=== PATIENT | male | born 1965 | race Caucasian/White ===

== ENCOUNTER 2020-04-26 15:44 | Inpatient (IN) | payer MEDICAID ==
[~2020-04-26] VITALS: Ht 170.2 cm; Wt 65.3 kg
--- NOTE | 2020-04-26 16:00 | NUR ---
TIMO RA 860 "skateboarding couple days ago-fell and hurt RHand/swollen". on room air, breathing evenly and unlabored. connected to the monitor and pulse ox. kept comfortable, will continue to monitor accordingly.
[2020-04-26] MEDS ORDERED: TDAP [DIPH/PERTUSSIS/TET] 0.5 ML VIAL IM ONE ×2 (16:18→16:30)
--- NOTE | 2020-04-26 17:28 | NUR ---
MS ALISE NOTES PATIENT ARRIVED ON THE FLOOR AT 1650. PATIENT IN BED, RESTING, ALERT AND ORIENTED X 3-4. BREATHING EVEN AND UNLABORED ON ROOM AIR. SHOWS NO SIGNS OF ACUTE RESPIRATORY DISTRESS, NO ACUTE PAIN. IV ON LAC 18G ITS CLEAN DRY AND INTACT. SHOWS NO SIGNS OF INFILTRATION, NO REDNESS. SKIN ASSESSMENT COMPLETED, BELONGINGS CHECKLIST COMPLETED, ORIENTED TO UNIT AND STAFF. SAFETY PRECAUTIONS IN PLACE. BED IN LOWEST POSITION, LOCKED, AND CALL LIGHT KEPT WITHIN REACH. WILL CONTINUE TO MONITOR. Addendum: 04/26/20 at 1949 by YAKOV ETIENNE RN WRONG TIME
[2020-04-26] MEDS ORDERED: VANCOMYCIN 1 GM in IV D5W 250 ML IV ONE (17:30)
[2020-04-26] MEDS ORDERED: PIPERACILLIN /TAZOBACTAM 3.375 G in IV D5W 50 ML IV ONE (17:30)
--- NOTE | 2020-04-26 17:33 | NUR ---
MOVE SHEET SUBMITTED TO ADMITTING AND CALLED FOR MS BED.
--- NOTE | 2020-04-26 17:38 | NUR ---
CALLED SHARAD COLLINS PAGESg
[2020-04-26] MEDS ORDERED: KETOROLAC TROMETHAMINE 15 MG/ML VIAL ONE (17:45)
--- NOTE | 2020-04-26 17:46 | NUR ---
GOT BED 323-1
[2020-04-26] MEDS ORDERED: KETOROLAC TROMETHAMINE INJ 30 MG/ML VIAL IV ONE (18:00)
[2020-04-26 18:10] LABS: BASOPHILS # (AUTO) 0.1 /CMM (0.0-0.2); BASOPHILS % (AUTO) 0.7 % (0.0-2.0); EOSINOPHILS % (AUTO) 0.1 % (0.0-6.0); HEMATOCRIT 44 % (39-51); HEMOGLOBIN 14.8 g/dL (13.5-17.5); LYMPHOCYTES # (AUTO) 0.9 /CMM (0.8-4.8); LYMPHOCYTES % (AUTO) 4.7 % (20.0-44.0); MEAN CORPUSCULAR HGB CONC 34 g/dl (31.0-36.0); MEAN CORPUSCULAR VOLUME 93 fL (80-96); MONOCYTES # (AUTO) 1.3 /CMM (0.1-1.30); MONOCYTES % (AUTO) 6.7 % (2.0-12.0); NEUTROPHILS # (AUTO) 17.1 /CMM (1.8-8.9); NEUTROPHILS % (AUTO) 87.8 % (43.0-81.0); PLATELET COUNT (AUTO) 319 /CMM (150-450); RED BLOOD CELL COUNT(AUTO) 4.72 MIL/uL (4.5-6.0); WHITE BLOOD COUNT (AUTO) 19.5 K/uL (4.3-11.0)
[2020-04-26 18:21] LABS: CALCIUM, SERUM 9.1 mg/dL (8.5-10.1); POTASSIUM 3.1 mmol/L (3.5-5.1)
[2020-04-26] MEDS ORDERED: POTASSIUM CHLORIDE 20 MEQ TAB.PRT.SR PO ONE (18:30)
[2020-04-26] MEDS ORDERED: ZOLPIDEM TARTRATE 5 MG TABLET PO PRN (18:30)
[2020-04-26] MEDS ORDERED: Z GUARD REMEDY 2 OZ OINT TP PRN (18:30)
[2020-04-26] MEDS ORDERED: MAGNESIUM HYDROXIDE 30 ML UDC PO PRN (18:30)
[2020-04-26] MEDS ORDERED: MAG HYDROX/AL HYDROX/SIMETH 30 ML UDC PO PRN (18:30)
[2020-04-26] MEDS ORDERED: ONDANSETRON HCL/PF 4 MG/2 ML VIAL IVP PRN (18:30)
[2020-04-26] MEDS ORDERED: MORPHINE SULFATE INJ 2 MG/ML DISP.SYRIN IV PRN (18:30)
[2020-04-26] MEDS ORDERED: ACETAMINOPHEN 325 MG TABLET PO PRN (18:30)
--- NOTE | 2020-04-26 18:31 | NUR ---
report given to Jatinder CARRERO for guera.
--- NOTE | 2020-04-26 18:40 | NUR ---
MS CARRERO NOTES PATIENT ARRIVED ON THE FLOOR AT 1650. PATIENT IN BED, RESTING, ALERT AND ORIENTED X 3-4. BREATHING EVEN AND UNLABORED ON ROOM AIR. SHOWS NO SIGNS OF ACUTE RESPIRATORY DISTRESS, NO ACUTE PAIN. IV ON LAC 18G ITS CLEAN DRY AND INTACT. SHOWS NO SIGNS OF INFILTRATION, NO REDNESS. SKIN ASSESSMENT COMPLETED, BELONGINGS CHECKLIST COMPLETED, ORIENTED TO UNIT AND STAFF. SAFETY PRECAUTIONS IN PLACE. BED IN LOWEST POSITION, LOCKED, AND CALL LIGHT KEPT WITHIN REACH. WILL CONTINUE TO MONITOR. Addendum: 04/26/20 at 2016 by YAKOV ETIENNE RN PT ARRIVED ON FLOOR AT 1850
[2020-04-26] MEDS ORDERED: FEE PK DOSING 1 MIN EA MC ONE (18:49)
[2020-04-26 19:30] VITALS: BP 162/97
[2020-04-26 20:00] VITALS: BP 162/97
--- NOTE | 2020-04-26 20:00 | NUR ---
MS RN NOTES PATIENT SAID TO DRINK SEVERAL BEERS, WINE, OR HARD ALCOHOL ON A DAILY BASIS. ADMITTED THAT HE IS AN ALCOHOLIC. HE ALSO LIVES IN A MOTOR HOME AND STRUGGLES TO FIND A PLACE TO STAY PARKED. SUGGESTED TO MEET WITH STORE KEEPER TO GET OPTIONS TO HELP WITH SITUATION.
[2020-04-26] MEDS: PIPERACILLIN /TAZOBACTAM 3.375 G in IV D5W 50 ML IV SCH (23:45)
[2020-04-27] MEDS: PIPERACILLIN /TAZOBACTAM 3.375 G in IV D5W 50 ML IV SCH ×4 (05:28→23:53)
[2020-04-27] MEDS: VANCOMYCIN 1 GM in IV D5W 250 ML IV SCH ×2 (05:53→17:32)
--- NOTE | 2020-04-27 06:32 | NUR ---
MS RN NOTES PATIENT IN BED, ASLEEP, ALERT AND ORIENTED X 4. BREATHING EVEN AND UNLABORED ON ROOM AIR. SHOWS NO SIGNS OF ACUTE RESPIRATORY DISTRESS, NO ACUTE PAIN. IV ON LAC 18G SL, ITS CLEAN DRY AND INTACT. SHOWS NO SIGNS OF INFILTRATION, NO REDNESS. ALL DUE MEDICATIONS GIVEN. SAFETY PRECAUTIONS IN PLACE. BED IN LOWEST POSITION, LOCKED, AND CALL LIGHT KEPT WITHIN REACH. WILL ENDORSE TO ONCOMING NURSE
[2020-04-27 06:42] LABS: BASOPHILS # (AUTO) 0.1 /CMM (0.0-0.2); BASOPHILS % (AUTO) 0.3 % (0.0-2.0); EOSINOPHILS % (AUTO) 0.2 % (0.0-6.0); HEMATOCRIT 43 % (39-51); LYMPHOCYTES # (AUTO) 1.2 /CMM (0.8-4.8); LYMPHOCYTES % (AUTO) 6.1 % (20.0-44.0); MEAN CORPUSCULAR HGB CONC 33 g/dl (31.0-36.0); MEAN CORPUSCULAR VOLUME 93 fL (80-96); MONOCYTES # (AUTO) 1.1 /CMM (0.1-1.30); MONOCYTES % (AUTO) 5.9 % (2.0-12.0); NEUTROPHILS % (AUTO) 87.5 % (43.0-81.0); PLATELET COUNT (AUTO) 309 /CMM (150-450); RED BLOOD CELL COUNT(AUTO) 4.56 MIL/uL (4.5-6.0); WHITE BLOOD COUNT (AUTO) 19.4 K/uL (4.3-11.0)
--- NOTE | 2020-04-27 07:10 | NUR ---
RN OPENING NOTES RECEIVED PATIENT IN BED AWAKE RESTING. A/OX4. NOT IN ANY FORM OF DISTRESS, NO SOB. DENIED PAIN OR DISCOMFORT AT THIS TIME. IV ACCESS INTACT AND PATENT. KEPT PATIENT SAFE AND COMFORTABLE. BED IN LOW/LOCKED [place]. SIDERAILS UPX2, CALL LIGHT IN REACH. WILL CONT TO MONITOR ACCORDINGLY.
[2020-04-27 07:11] LABS: CALCIUM, SERUM 9.1 mg/dL (8.5-10.1); CREATININE 0.9 mg/dL (0.6-1.3); MAGNESIUM 1.8 mg/dL (1.8-2.4); PHOSPHORUS 2.6 mg/dL (2.5-4.9); POTASSIUM 3.7 mmol/L (3.5-5.1)
[2020-04-27 07:13] LABS: THYROID STIMULATING HORMONE 0.384 uIU/mL (0.358-3.74)
[2020-04-27 08:00] VITALS: BP 173/96
[2020-04-27] MEDS: HYDROCODONE/APAP 5/325MG 1 EACH TABLET PO PRN (08:58)
[2020-04-27 10:00] VITALS: BP 149/97
--- NOTE | 2020-04-27 11:00 | NUR ---
RN NOTES WOUND CARE RENDERED ON RIGHT HAND
--- NOTE | 2020-04-27 12:07 | NUR ---
Social Service consult requested by MD for alcohol abuse. Per MD notes, pt is a 55-year-old male, presenting to the ER because of acute right wrist and right hand pain after he fell couple days ago. LINE TENDER FLAKEBOARD conducted chart review and met with the pt bedside. LINE TENDER FLAKEBOARD introduced self, explained the role of the SW and purpose of the visit. Pt is alert and oriented to person, place, time and situation. Pt reports, he resides in a motor home which is currently [place] [employer] [place] [email or web address] Pt has no monthly income. Pt reports, he recently applied for the stimulus package. Pt has a history of alcohol abuse and drinks daily. Pt has had a DUI in 1994 and attended a treatment program right after. Pt reports, he [place] market on [place] carrying a pack of beer and bottle of wine and fell. Pt did report he had used methamphetamines earlier that day. Pt states, he stopped smoking cigarettes since 1984. Pt denies any psychiatric illness or hospitalizations. Pt reports, " I am pretty strong that way". Pt wishes to be discharged back to his motor home. Pt will require a TAP card upon discharge. LINE TENDER FLAKEBOARD provided pt with active listening, supportive counseling, validation of feelings and positive coping skills. LINE TENDER FLAKEBOARD encouraged pt to attend an alcohol treatment program and provided him a list of addiction resources. LINE TENDER FLAKEBOARD also provided pt with list of Homeless Resources Related to COVID-19. LINE TENDER FLAKEBOARD updated MS3 RIKKI Moffett and CARLO Gupta with pt's discharge plan. Homeless Patient waiver Form needs to be signed by the pt at discharge. RN notified. Workers Compensation Claims Supervisor to remain available for support as needed.
--- NOTE | 2020-04-27 14:00 | NUR ---
rn notes offered pain meds. patient stated that he is ok for now.
[2020-04-27 16:00] VITALS: BP 139/83
--- NOTE | 2020-04-27 18:51 | NUR ---
RN CLOSING NOTES PATIENT IN BED RESTING. ALL NEEDS ATTENDED AND PROVIDED. ALL DUE MEDS GIVEN ORDERED. ASSISTED WITH ADLS. KEPT PATIENT SAFE AND COMFORTABLE. BED IN LOW/LOCKED POSITION. SIDERAILS UPX2, CALL LIGHT IN REACH. WILL ENDORSE ACCORDINGLY TO NIGHT RN.
[2020-04-27 20:19] VITALS: BP 136/62
--- NOTE | 2020-04-27 20:24 | NUR ---
RN NOTES PATIENT IN BED, ALERT AND ORIENTED X4, ROOM AIR, DENIES PAIN AT THIS TIME, RIGHT HAND WOUND SECURED WITH DRESSING, ATE DINNER. WILL CONTINUE TO MONITOR
[2020-04-28] MEDS: PIPERACILLIN /TAZOBACTAM 3.375 G in IV D5W 50 ML IV SCH ×2 (05:18→12:12)
--- NOTE | 2020-04-28 06:22 | NUR ---
RN NOTES Alert and oriented x4, right hand cellulitis, continue vancomycin and zosyn, vanco trough 04/28/20 at 0500, pending wound care consult.
--- NOTE | 2020-04-28 07:44 | NUR ---
RN OPENING NOTE Patient is resting in bed, A/O x4, showing no signs of acute distress or SOB, stable on RA. IV line in the LAC #18g is clean and intact s/l. Bed is in lowest position, side rails x3 in upright position, call light is within reach. Fall, safety and aspiration precautions enforced. Will continue with plan of care.
[2020-04-28 07:54] LABS: CALCIUM, SERUM 9.1 mg/dL (8.5-10.1); MAGNESIUM 2.3 mg/dL (1.8-2.4); PHOSPHORUS 3.1 mg/dL (2.5-4.9); POTASSIUM 4.2 mmol/L (3.5-5.1)
[2020-04-28] MEDS: HYDROCODONE/APAP 5/325MG 1 EACH TABLET PO PRN (07:57)
[2020-04-28 08:00] VITALS: BP 140/81
[2020-04-28 08:07] VITALS: BP 140/81
--- NOTE | 2020-04-28 08:08 | NUR ---
RN NOTE Patient presents with 6/10 pain on right hand and temperature of 99.0F. [place] given and cooling measures implemented, will continue to monitor.
--- NOTE | 2020-04-28 09:05 | NUR ---
RN NOTE 0600 Vanco held by PM RN due to pending trough levels. Trough came back 6, ok per pharmacy to give vanco at this time.
[2020-04-28] MEDS: VANCOMYCIN 1 GM in IV D5W 250 ML IV SCH (09:08)
[2020-04-28 09:54] LABS: BASOPHILS # (AUTO) 0.1 /CMM (0.0-0.2); BASOPHILS % (AUTO) 0.6 % (0.0-2.0); EOSINOPHILS % (AUTO) 0.7 % (0.0-6.0); HEMATOCRIT 40 % (39-51); HEMOGLOBIN 13.2 g/dL (13.5-17.5); LYMPHOCYTES # (AUTO) 0.6 /CMM (0.8-4.8); MEAN CORPUSCULAR HGB CONC 33 g/dl (31.0-36.0); MEAN CORPUSCULAR VOLUME 93 fL (80-96); MONOCYTES # (AUTO) 0.5 /CMM (0.1-1.30); MONOCYTES % (AUTO) 3.4 % (2.0-12.0); NEUTROPHILS % (AUTO) 91.3 % (43.0-81.0); PLATELET COUNT (AUTO) 274 /CMM (150-450); RED BLOOD CELL COUNT(AUTO) 4.27 MIL/uL (4.5-6.0); WHITE BLOOD COUNT (AUTO) 14.2 K/uL (4.3-11.0)
[2020-04-28] MEDS ORDERED: CEPH-570 PO (12:46)
--- NOTE | 2020-04-28 14:28 | NUR ---
SAFE DEPOSIT BOX RENTAL CLERK NOTE Patient is medically cleared for discharge. Patient is A/O x4, showing no signs of acute distress or SOB, stable on RA. VS stable. DC instructions provided and patient verbalized understanding, all belongings are with the patient. DC instructions, belongings list, and homeless waiver form signed and placed in chart. Written prescriptions given to patient. Patient unable to provide any phone number for family or friends to contact. Patient refused skin assessment and photos to be taken. IV line removed, ID band removed, provided t-shirt and metro card for the patient from nursing supervisor bottle machines. Patient escorted down to lobby with HELP DESK ANALYST en route to patient's own motor home.
[2020-04-28] MEDS ORDERED: VANCOMYCIN 1 GM in IV D5W 250 ML IV SCH (17:00)
== END 2020-04-28 14:00 | disposition home or self-care (01) | DRG 383 ==
LOC: ER 15:48 → MED 18:25
PROVIDERS: ADMIT Student in an Organized Health Care Education/Training Program; ATTEND Student in an Organized Health Care Education/Training Program
DX: L03.113 Cellulitis of right upper limb (principal); E87.1 Hypo-osmolality and hyponatremia; E87.6 Hypokalemia; F10.10 Alcohol abuse, uncomplicated; S61.411A Laceration without foreign body of right hand, initial encounter; X58.XXXA Exposure to other specified factors, initial encounter; Y92.9 Unspecified place or not applicable; Y99.9 Unspecified external cause status; Y90.9 Presence of alcohol in blood, level not specified; F17.200 Nicotine dependence, unspecified, uncomplicated; M19.90 Unspecified osteoarthritis, unspecified site; S62.201A Unspecified fracture of first metacarpal bone, right hand, initial encounter for closed fracture; Y90.0 Blood alcohol level of less than 20 mg/100 ml
CPT/HCPCS: 36415; 73110; 73130-TC; 80048-TC; 80061-TC; 80202-TC; 83735-TC; 84100-TC; 84443-TC; 85025-TC; 87040-TC; 87081-TC; 90715; G0378; G0480; J1885; J2543; J3370; J7050; J7060

== ENCOUNTER 2020-05-12 07:47 | Emergency (ER) | payer MEDICAID ==
[~2020-05-12] VITALS: Ht 170.2 cm; Wt 65.8 kg
[~2020-05-12 07:47] MED LIST: CEPH-570 PO
--- NOTE | 2020-05-12 07:47 | NUR ---
PT BIBRA FROM THE STREET C/O R ARM PAIN AND SWELLING. PT IS AAOX4, NOT IN RESPIRATORY DISTRESS, HOOKED TO PRODUCT TECHNOLOGY SCIENTIST, KEPT RESTED AND COMFORTABLE. WILL CONTINUE TO MONITOR.
--- NOTE | 2020-05-12 07:55 | NUR ---
AT BEDSIDE FOR EVAL.
[2020-05-12] MEDS ORDERED: CEFTRIAXONE 1 G VIAL IM ONE (08:00)
[2020-05-12] MEDS ORDERED: HYDROCODONE/APAP 5/325MG 1 EACH TABLET PO ONE (08:00)
[2020-05-12] MEDS ORDERED: LIDOCAINE /MPF 1% VIAL 5 ML VIAL ONE (08:02)
[2020-05-12] MEDS ORDERED: HYDROCODONE/APAP 5/325MG 1 EACH TABLET ONE (08:02)
[2020-05-12] MEDS ORDERED: CEFTRIAXONE 1 G VIAL ONE (08:02)
[2020-05-12] MEDS ORDERED: CLONIDINE HCL 0.1 MG TABLET ONE (08:13)
[2020-05-12] MEDS ORDERED: CLONIDINE HCL 0.1 MG TABLET PO ONE (08:30)
--- NOTE | 2020-05-12 08:42 | NUR ---
Patient given written and verbal discharge instructions. Patient verbalizes understanding of instructions. Patient is ambulatory with steady gait. Refuses offer of [facility] placement. Patient given list of available shelters in surrounding area.
[2020-05-12 08:44] VITALS: BP 149/100
== END 2020-05-12 08:44 | disposition home or self-care (01) ==
LOC: ER 07:50
DX: L03.113 Cellulitis of right upper limb (principal); I10 Essential (primary) hypertension; Z59.0 Homelessness
CPT/HCPCS: 96372; 99283; J0696; J3490

== ENCOUNTER 2020-10-17 18:50 | Emergency (ER) | payer MEDICAID, OTHER ==
[~2020-10-17] VITALS: Ht 170.2 cm; Wt 68.0 kg
[2020-10-17 19:49] VITALS: BP 150/70
[2020-10-17] MEDS ORDERED: SULFAMETH/TRIMETH 800/160 MG 1 UDTAB TABLET ONE (20:06)
[2020-10-17] MEDS ORDERED: CEFTRIAXONE 500 MG VIAL ONE (20:06)
[2020-10-17] MEDS ORDERED: LIDOCAINE /MPF 1% VIAL 5 ML VIAL ONE (20:07)
[2020-10-17] MEDS: SULFAMETH/TRIMETH 800/160 MG 1 UDTAB TABLET PO ONE (20:15)
[2020-10-17] MEDS: CEFTRIAXONE 500 MG VIAL IM ONE (20:15)
== END 2020-10-17 20:24 | disposition home or self-care (01) ==
LOC: ER 18:54
DX: L03.113 Cellulitis of right upper limb (principal); I10 Essential (primary) hypertension; Z59.0 Homelessness
CPT/HCPCS: 96372; 99283; J0696; J3490